=== PATIENT | female | born 1950 | race Caucasian/White ===

== ENCOUNTER → 2018-04-26 | Outpatient (CLI) | payer MEDICARE, OTHER | LOC: MC.RAD 03-18 08:00 | DX: Z12.31 Encounter for screening mammogram for malignant neoplasm of breast (principal) ==

== ENCOUNTER → 2020-05-17 | Outpatient (CLI) | payer MEDICARE, OTHER | LOC: MC.RAD 04-30 10:30 | DX: Z12.31 Encounter for screening mammogram for malignant neoplasm of breast (principal) ==

== ENCOUNTER → 2021-09-07 | Outpatient (CLI) | payer MEDICARE | LOC: MC.RAD 10:53 | DX: Z12.31 Encounter for screening mammogram for malignant neoplasm of breast (principal) ==

== ENCOUNTER 2022-07-07 20:54 | Emergency (ER) | payer MEDICARE, OTHER ==
[~2022-07-07] VITALS: Ht 160 cm; Wt 61.4 kg
[2022-07-07 21:09] VITALS: BP 138/99; TEMP 98.4
[2022-07-07 22:48] VITALS: PULSE 83
== END 2022-07-07 22:48 | disposition home or self-care (01) ==
LOC: COL.ER 20:54
DX: R04.0 Epistaxis (principal)